=== PATIENT | female | born 1980 | race Two or more races ===

== ENCOUNTER 2022-07-17 17:30 | Emergency (ER) | payer SELFPAY ==
[~2022-07-17] VITALS: Ht 162.6 cm; Wt 54.0 kg
[2022-07-17] MEDS ORDERED: HYDROcodone-ACET 5/325MG TAB PO ONE (20:15)
[2022-07-18 00:10] VITALS: BP 132/72
[2022-07-18] MEDS ORDERED: KETOROLAC TROMETH 30 MG/ML 1ML VIAL IM ONE (00:15)
== END 2022-07-18 00:33 | disposition home or self-care (01) ==
LOC: EDBD 17:30 → ER 17:30
DX: S82.001A Unspecified fracture of right patella, initial encounter for closed fracture (principal); W19.XXXA Unspecified fall, initial encounter; Y93.89 Activity, other specified; Y92.89 Other specified places as the place of occurrence of the external cause; Y99.8 Other external cause status
CPT/HCPCS: 29505; 73562; 96372; 99283; J1885